=== PATIENT | female | born 1930 | race Caucasian/White ===

== ENCOUNTER 2018-04-16 07:06 | Day surgery (SDC) | payer MEDICARE, OTHER ==
[2018-04-16 08:37] LABS: ADD MAN DIFF? NO
[2018-04-16 08:43] LABS: WHITE BLOOD COUNT 4.7 10^3/ul (4.8-10.8)
[2018-04-16 08:43] LABS: BASOPHILS % 0.9 % (0.0-2.0); EOSINOPHILS # 0.1 10^3/ul (0.0-0.5); EOSINOPHILS % 1.7 % (0.0-7.0); HEMATOCRIT 38.6 % (37.0-47.0); IMMATURE GRANS #M 0.01 10^3/ul; IMMATURE GRANS % (M) 0.2 %; LYMPHOCYTES # 1.6 10^3/ul (0.8-2.9); MEAN CORPUSCULAR HEMOGLOBIN 31.6 pg (29.0-33.0); MEAN CORPUSCULAR HGB CONC 33.7 g/dl (32.0-37.0); MEAN CORPUSCULAR VOLUME 93.9 fl (82.0-101.0); MEAN PLATELET VOLUME 9.8 fl (7.4-10.4); MONOCYTE # 0.4 10^3/ul (0.3-0.9); NEUTROPHIL # 2.5 10^3/ul (1.6-7.5); NEUTROPHILS % 53.2 % (39.0-77.0); PLATELET COUNT 244 10^3/UL (140-415); RED BLOOD COUNT 4.11 10^6/ul (4.20-5.40); RED CELL DISTRIBUTION WIDTH 14.3 % (11.5-14.5)
[2018-04-16] MEDS ORDERED: LACTATED RINGER'S 1,000 ML IV (09:00)
[2018-04-16 09:04] LABS: INR 1.03; PROTIME 13.6 Sec (11.9-14.9); PT RATIO 1.1
[2018-04-16 09:05] LABS: PARTIAL THROMBOPLASTIN TIME 28.5 Sec (25.0-35.0)
[2018-04-16 09:08] LABS: ANION GAP 12 (8-16); BLOOD UREA NITROGEN 21 mg/dl (7-20); CALCIUM 9.4 mg/dl (8.4-10.2); CARBON DIOXIDE 28 mmol/L (21-31); CHLORIDE 102 mmol/L (97-110); CREATININE 0.93 mg/dl (0.44-1.00); GLUCOSE 98 mg/dl (70-220); POTASSIUM 4.2 mmol/L (3.5-5.1); SODIUM 138 mmol/L (135-144)
[2018-04-16] MEDS ORDERED: MIDAZOLAM 1 MG/ML 2 ML INJ (09:51)
[2018-04-16] MEDS ORDERED: KETAMINE (100 MG/ML) 5 ML VIAL (09:56)
[2018-04-16] MEDS ORDERED: CEFAZOLIN 1 GM INJ (09:58)
[2018-04-16] MEDS: BUPIVACAINE 0.5%/EPI (SDV) 30 ML INJ (10:03)
[2018-04-16] MEDS: LIDOCAINE 1% (MPF) 30 ML INJ (10:03)
[2018-04-16] MEDS ORDERED: ONDANSETRON 4 MG INJ IV (11:00)
== END 2018-04-16 12:22 | disposition home or self-care (01) ==
LOC: SDS 07:06
DX: D21.5 Benign neoplasm of connective and other soft tissue of pelvis (principal); I10 Essential (primary) hypertension
CPT/HCPCS: 11100; 71045; 80048; 85025; 85610; 85730; 88305; 88331; 93005